=== PATIENT | female | born 1955 | race Caucasian/White ===

== ENCOUNTER 2016-10-24 09:28 | Emergency (ER) | payer OTHER ==
[~2016-10-24 09:28] MED LIST: ACTONEL35 MG; ALLOPURINOL300 M1 PO; CIPRO500 M2 PO; COMPAZINE10 MG PO; CRESTOR10 MG/TAB PO; FLEXERIL10 MG PO; GLUCOSAMINE HC500 M1 PO; IBUPROFEN200 M3 PO; LEVAQUIN500 M1 PO; LORAZEPAM0.5 GM PO; LORAZEPAM0.5 M1 PO; LOVENOX100 MG/1 M SC; MAGNESIUM OXID400 M1 PO; MULTIPLE VITAM1 EAC3 PO; NORCO 7.5/325 T1 TAB PO; OXYCODONE HCL5 M1 PO; POTASSIUM CHLO20 ME3 PO; PRILOSEC40 M1 PO; RANITIDINE HCL150 M3 PO; SYNTHROID50 MC1 PO; TOPROL XL25 M1 PO; VALTREX500 M1 PO; VITAMIN D1000 UNI2 PO; ZOFRAN8 M1 PO; ZYLOPRIM300 M1 PO
[2016-10-24] MEDS ORDERED: AMOXICILLIN875 M1 PO (09:33)
[2016-10-24] MEDS ORDERED: ASPIRIN81 M1 PO (09:46)
[2016-10-24 10:20] LABS: BASO % 0.3 % (0-2); EOS % 0.8 % (0-7); EOSINOPHIL ABSOLUTE COUNT 0.1 tho/cmm (0.0-0.7); HCT-HEMATOCRIT 43.4 % (34.0-49.0); IMMATURE GRANULOCYTES ABSOLUTE 0.02 tho/cmm (0-0.03); IMMATURE GRANULOCYTES PERCENT 0.3 % (0-0.3); LYMPH % 31.7 % (20-45); MCH (MEAN CORPUSCULAR HGB) 32.6 pg (28.0-32.0); MCHC MEAN CORPUSCULAR HGB CONC 34.6 % (32.0-36.0); MCV (MEAN CELL VOLUME) 94.3 fl (82.0-96.0); MEAN PLATELET VOLUME 9.2 cmc (9.4-12.4); MONO % 8.7 % (0-12); MONOCYTE ABSOLUTE COUNT 0.6 tho/cmm (0.0-1.2); NEUTROPHIL ABSOLUTE COUNT 3.7 tho/cmm (1.6-8.0); NEUTROPHIL-AUTOMATED 3.7 tho/cmm (1.6-8.0); NEUTROPHILS % 58.2 % (40-80); PLATELET COUNT 154 tho/cmm (150-450); RED CELL DISTRIBUTION WIDTH 12.9 % (12.4-16.4); WHITE BLOOD COUNT 6.3 tho/cmm (4.0-10.0)
[2016-10-24 10:35] LABS: ALB/GLOB RATIO 1.4 (0.8-2.0); ALBUMIN 4.2 g/dl (3.5-5.0); ALKALINE PHOSPHATASE 166 U/L (33-138); ALT/SGPT 27 U/L (12-78); ANION GAP 12 mmol/L (0-20); AST/SGOT 20 U/L (10-40); BILIRUBIN,TOTAL 0.4 mg/dl (0-1.5); BLOOD UREA NITROGEN 16 mg/dl (6-24); CALCIUM 9.6 mg/dl (8.5-10.5); CARBON DIOXIDE-VENOUS 27 mmol/L (22-32); CHLORIDE 108 mmol/l (96-110); CREATININE 0.83 mg/dl (0.50-1.10); GLUCOSE 90 mg/dL (70-110); SODIUM 143 mmol/L (135-145); eGFR VALUE FOR BLACK 87 mL/Min
[2016-10-24 11:07] LABS: ESR-ERYTHROCYTE SED RATE 6 mm/hr (0-30)
[2016-10-24] MEDS ORDERED: ZITHROMAX250 M1 PO (11:41)
[2016-10-24] MEDS ORDERED: DELTASONE20 MG PO (11:41)
[2017-04-26] MEDS ORDERED: VALTREX500 M1 PO (10:27)
== END 2016-10-24 12:00 ==
LOC: EDMED 09:28
PROVIDERS: Emergency Medicine
DX: J01.00 Acute maxillary sinusitis, unspecified (principal); R42 Dizziness and giddiness